=== PATIENT | female | born 1995 | race African-American/Black ===

== ENCOUNTER 2018-09-03 10:26 | Emergency (ER) | payer MEDICAID, OTHER ==
[~2018-09-03] VITALS: Ht 170.2 cm; Wt 129.3 kg
--- NOTE | 2018-09-03 10:31 | NUR ---
Pt placed in bed 8
[2018-09-03 10:32] VITALS: BP_SYST 142
--- NOTE | 2018-09-03 10:41 | NUR ---
Patient arrived by POV, alert and oriented with steady gait. Patient c/c of sore throat, decreased appetite, fever, nausea, nasal congestion, and cough. Patient states it began about 10 days ago. Patient has been taking Ibuprofen and Tylenol for pain relief and Amoxicillan from a prior prescription, she feels like she has not gotten any better. Patient speaks in short sentences, hoarse raspy voice. Patient resting comfortably. Patient placed on cardiac rehabilitation program director.
--- NOTE | 2018-09-03 10:41 | NUR ---
ER at bedside examining patient.
[2018-09-03 11:25] LABS: INFLUENZA A&B ANTIGEN SCREEN NEGATIVE FOR A & B (NEGATIVE); STREPTOCOCCUS A SCREEN (RAPID) NEGATIVE (NEGATIVE)
[2018-09-03 11:38] VITALS: BP_SYST 139
--- NOTE | 2018-09-03 11:40 | NUR ---
Patient given written and verbal discharge instructions and verbalizes understanding. ER MD discussed with patient the results and treatment provided. Patient in stable condition. ID arm band removed. Rx of Promethazine Hydrochloride/Detromethorphan Hydrobromide and Flonase given. Patient educated on pain management and to follow up with PMD. Pain Scale 2/10. Opportunity for questions provided and answered.
== END 2018-09-03 11:40 | disposition home or self-care (01) ==
LOC: SED 10:26
DX: J06.9 Acute upper respiratory infection, unspecified (principal); R03.0 Elevated blood-pressure reading, without diagnosis of hypertension; F17.210 Nicotine dependence, cigarettes, uncomplicated
CPT/HCPCS: 36415; 86403; 86710; 87081; 93005; 99285